=== PATIENT | female | born 2000 | race Caucasian/White ===

== ENCOUNTER 2021-11-12 13:57 | Outpatient (CLI) | payer OTHER, SELFPAY | END 2021-11-12 13:58 | disposition home or self-care (01) | PROVIDERS: Visit Provider Pediatrics | DX: H90.42 Sensorineural hearing loss, unilateral, left ear, with unrestricted hearing on the contralateral side (principal) | CPT/HCPCS: 92557; 92567 ==

== ENCOUNTER 2023-01-07 16:49 | Emergency (ER) | payer OTHER, SELFPAY ==
[2023-01-07 16:51] VITALS: BP 130/104; PULSE 87; RESP 18; TEMP 36.2; O2SAT 100
--- NOTE | 2023-01-07 17:21 | ED.PSYCH ---
HPI - Psych General Chief Complaint: Psychiatric Symptoms <Radha Can PA-C - Last Filed: 01/08/23 03:39> Stated Complaint: Psych <Radha Can PA-C - Last Filed: 01/08/23 03:39> Time Seen by Provider: 01/07/23 17:01 <Radha Can PA-C - Last Filed: 01/08/23 03:39> History of Present Illness HPI Narrative: 22 y/o F with a history of PETRONA, MDD, ADHD, borderline personality disorder, PTSD reports for evaluation for suicidal ideation. Patient reports she has been struggling with depression and suicidal thoughts since she was 9 years old, however these thoughts have increased over the past 10 days. She does report a plan for suicide which is to smoke a lot of weed and turn the car on with the garage door closed. Denies homicidal ideation or plan. States she is attempted to admit herself voluntarily to psychiatric facilities in [place], [facility], and [place] within the past 10 days, in addition she has called suicide hotlines and the crisis line with [facility]. States she has not been able to be placed anywhere, therefore came to the ED because she knows she needs help. She has been hospitalized twice in the past. First she was hospitalized in 2017 at [place] for attempted suicide. She was then hospitalized in 2019 and [place] for cutting herself. She does endorse some paranoia, insomnia, decreased eating and drinking and a weight loss of 15 to 20 pounds in the past month. She reports smoking marijuana, denies other drug use. Denies alcohol use. Her psychiatrist is is Dr. Rolle at [facility] in [place], [address]. Her current psychiatric medication is Buspirone 15mg BID. She is requesting voluntary admission at this time. Denies auditory or visual hallucinations. She does not own any firearms. <Radha Can PA-C - Last Filed: 01/08/23 03:39> Related Data Allergies/Adverse Reactions: Allergies Allergy/AdvReac Type Severity Reaction Status Date / Time salicylic acid AdvReac Unknown Verified 01/07/23 20:15 <Radha Can PA-C - Last Filed: 01/08/23 03:39> Review of Systems Review of Systems: CONSTITUTIONAL: Denies fever, chills EYES: Denies visual changes, redness, or discharge. ENT: Denies rhinorrhea, congestion, sore throat, or otalgia. CARDIOVASCULAR: Denies chest pain, palpitations, or edema. RESPIRATORY: Denies cough or dyspnea. GASTROINTESTINAL: Denies abdominal pain, vomiting, or diarrhea. GENITOURINARY: Denies dysuria or hematuria. SKIN: Denies rash or itching. MUSCULOSKELETAL: Denies back pain, joint pain, or myalgia. NEUROLOGIC: Denies headache, numbness, dizziness, or weakness. PSYCHIATRIC: See HPI <Radha Can PA-C - Last Filed: 01/08/23 03:39> Exam Narrative: GENERAL: Well-appearing, in no acute distress. Patient resting comfortably in exam bed. She is pleasant and conversational HEAD: Normocephalic NECK: Supple. CHEST: No respiratory distress. Clear to auscultation, no adventitious breath sounds. HEART: Regular rate and rhythm. No murmur heard. Normal peripheral pulses. ABDOMEN: Soft, nontender, normal active bowel sounds. EXTREMITIES: Normal range of motion. No edema. SKIN: Warm, dry, no rash. NEURO: No focal deficits. Alert and oriented x3. PSYCH: Pt appears sad, endorses hopelessness, SI with a plan. No HI. No auditory or visual hallucinations. Normal judgment and behavior. <Radha Can PA-C - Last Filed: 01/08/23 03:39> Course Course Emergency Course: 1858: Patient medically cleared. Charge nurse notified to contact psychiatry services. <Radha Can PA-C - Last Filed: 01/08/23 03:39> [employer]GRAM MANAGER/PA Physician Supervision This is a was performed by both a physician and an APC. I performed all aspects of the MDM as documented w/ the following additions: 22-year-old coming in for psychiatric eval. Patient was evaluate by psych and is deemed safe for outpatie
[2023-01-07 17:55] LABS: Basophils Percent Auto 0.4 % (0.2-1.2); Eosinophils Absolute Auto 0.1 K/mm3 (0-0.3); Eosinophils Percent Auto 1.7 % (0-4.4); Hematocrit 41.7 % (37.0-47.0); Hemoglobin 13.7 g/dL (12.0-15.0); Immature Granulocyte Absolute 0.01 K/mm3 (0.00-0.031); Immature Granulocyte Percent A 0.2 % (0-0.5); Lymphocytes Absolute Auto 1.59 K/mm3 (0.9-3.2); Lymphocytes Percent Auto 30.8 % (18.3-44.2); Mean Corpuscular HGB Conc 32.9 g/dl (32-36); Mean Corpuscular Hemoglobin 28.1 pg (26-34); Mean Corpuscular Volume 85.6 fl (80-100); Mean Platelet Volume 12.2 fl (7.4-10.4); Monocytes Absolute Auto 0.5 K/mm3 (0.1-0.6); Monocytes Percent Auto 10.3 % (2.6-8.5); Neutrophils Absolute Auto 2.9 K/mm3 (1.3-6.7); Neutrophils Percent Auto 56.6 % (45.5-73.1); Platelet Count Result 194 k/mm3 (150-375); Red Blood Count 4.87 M/mm3 (4.2-5.4); Red Cell Distribution Width 13.3 % (11.5-14.5); White Blood Count 5.2 K/mm3 (4.5-10.0)
[2023-01-07 18:07] LABS: Ethanol < 10 mg/dL (<10)
[2023-01-07 18:08] LABS: Alanine Aminotransferase 61 U/L (6-35); Albumin Level 4.7 g/dL (3.5-5.1); Alkaline Phosphatase 63 U/L (38-126); Amphetamine Screen Urine Negative (Negative); Anion Gap 11 mmol/L (8-16); Aspartate Amino Transferase 63 U/L (14-36); Barbiturate Screen Urine Negative (Negative); Benzodiazepines Screen Urine Negative (Negative); Bilirubin,Total 0.3 mg/dL (0.2-1.3); Blood Urea Nitrogen 10 mg/dL (7-17); Calcium 9.4 mg/dL (8.4-10.2); Cannabinoid Screen Urine Positive (Negative); Carbon Dioxide 22 mmol/L (22-30); Chloride 108 mmol/L (98-107); Cocaine Screen Urine Negative (Negative); Estimated CRCL calculation 119 ml/min; Estimated Glomerular Filt Rate > 60; Glucose 112 mg/dL (65-110); Methadone Screen Urine Negative (Negative); Opiate Screen Urine Negative (Negative); Phencyclidine Screen Urine Negative (Negative); Sodium 141 mmol/L (137-145)
[2023-01-07 18:11] LABS: Acetaminophen < 10 ug/mL (10-30); Salicylate < 1.0 mg/dL (2-20)
[2023-01-07 18:28] LABS: Appearance Urine Clear (Clear); Bacteria Urine None Seen /hpf; Bilirubin Urine Negative (Negative); Blood Urine Negative (Negative); Calcium Oxalate Crystals Urine Present /hpf; Color Urine Yellow (Yellow); Glucose Urine UA Negative (Negative); Ketones Urine Trace mg/dL (Negative); Leukocyte Esterase Ur Trace LEU/UL (Negative); Nitrate Urine Negative (Negative); Non Pathogenic Casts 0-2; Protein Urine Trace mg/dL (Negative); RBC Urine 0-2 /hpf (0-2); Specific Grav Ur 1.028 (1.001-1.035); Squamous Epithelial Cell Urine Few /hpf (Few); pH Urine 6.5 (5.0-9.0)
[2023-01-07 18:30] LABS: SARS-CoV-2 RNA PCR Negative (Negative)
[2023-01-07 18:31] LABS: Add Urine Microscopic? YES
[2023-01-07 18:39] LABS: Thyroid Stimulating Hormone 0.546 uIU/mL (0.465-4.680)
--- NOTE | 2023-01-07 21:40 | PC.NURSE ---
crisis at bedside.
--- NOTE | 2023-01-07 22:32 | PC.NURSE ---
Crisis evaluated pt and decided to release her with a safety plan. Pt aware and in agreement with the plan.
[2023-01-07 23:17] VITALS: BP 128/89; PULSE 76; RESP 17; O2SAT 99
== END 2023-01-07 23:19 | disposition home or self-care (01) ==
PROVIDERS: Emergency Medicine; Emergency Provider Physician Assistant
DX: F32.9 Major depressive disorder, single episode, unspecified (principal); Z20.822 Contact with and (suspected) exposure to COVID-19; F41.1 Generalized anxiety disorder; F43.10 Post-traumatic stress disorder, unspecified; F60.3 Borderline personality disorder; F90.9 Attention-deficit hyperactivity disorder, unspecified type
CPT/HCPCS: 36415; 80053; 80307; 81001; 81025; 84443; 85025; 87086; 87088; 87635; 99284